=== PATIENT | male | born 1995 | race Two or more races ===

== ENCOUNTER 2016-03-25 13:27 | Emergency (ER) | payer OTHER ==
--- NOTE | 2016-03-25 13:46 | ER Document Report ---
ED Medical Screen (RME) - General Stated Complaint: BODY PAINS Mode of Arrival: Ambulatory Information source: Patient Notes: Patient presents to the emergency department with complaints of body aches and pains past 3 weeks. Reports history of food poisoning last week. He was evaluated and vomiting 3 weeks ago. Denies recent fever vomiting diarrhea. 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 I have greeted and performed a rapid initial assessment of this patient. A comprehensive ED assessment and evaluation of the patient, analysis of test results and completion of the medical decision making process will be conducted by additional ED providers. TRAVEL OUTSIDE OF THE [place] IN LAST 30 DAYS: No - Related Data Allergies/Adverse Reactions: No Known Allergies Allergy (Unverified 03/25/16 13:43) Past Medical History - Immunizations Immunizations up to date: Yes Hx Diphtheria, Pertussis, Tetanus Vaccination: Yes
[2016-03-25 14:04] LABS: APPEARANCE,URINE CLEAR; BILIRUBIN,URINE NEGATIVE (NEGATIVE); GLUCOSE, URINE NEGATIVE (NEGATIVE); KETONES,URINE NEGATIVE (NEGATIVE); LEUKOCYTE ESTERASE,URINE NEGATIVE (NEGATIVE); NITRITE,URINE NEGATIVE (NEGATIVE); PROTEIN,URINE NEGATIVE (NEGATIVE); URINE SPECIFIC GRAVITY 1.025
[2016-03-25 14:10] LABS: HEMATOCRIT 44.4 % (37.9-51.0); HEMOGLOBIN 13.3 g/dL (13.5-17.0); MEAN CORPUSCULAR HEMOGLOBIN 16.4 pg (27.0-33.4); MEAN CORPUSCULAR HGB CONC 30.1 g/dL (32.0-36.0); RED CELL DISTRIBUTION WIDTH 17.7 % (11.5-14.0); WHITE BLOOD COUNT 7.4 10^3/uL (4.0-10.5)
[2016-03-25 14:23] LABS: ALANINE AMINOTRANSFERASE 91 U/L (21-72); ALBUMIN 3.6 g/dL (3.5-5.0); ALKALINE PHOSPHATASE 65 U/L (38-126); ANION GAP 13 (5-19); ASPARTATE AMINO TRANSFERASE 80 U/L (17-59); BILIRUBIN,TOTAL 0.5 mg/dL (0.2-1.3); BLOOD UREA NITROGEN 11 mg/dL (7-20); CALCIUM 9.6 mg/dL (8.4-10.2); CARBON DIOXIDE 28 mmol/L (22-30); CHLORIDE 100 mmol/L (98-107); CREATINE KINASE 722 U/L (55-170); GLUCOSE 92 mg/dL (75-110); POTASSIUM 4.4 mmol/L (3.6-5.0); SODIUM 141.1 mmol/L (137-145); TOTAL PROTEIN 7.3 g/dL (6.3-8.2)
[2016-03-25 14:35] LABS: HGB HCT DIFFERENCE -4.5; MEAN CORPUSCULAR VOLUME 55 fl (80-97); RED BLOOD COUNT 8.13 10^6/uL (4.35-5.55)
[2016-03-25 14:42] LABS: ANISOCYTOSIS 2+; BAND NEUTROPHILS % (MANUAL) 12 % (3-5); BASOPHILS % (MANUAL) 1 % (0-2); EOSINOPHILS % (MANUAL) 0 % (0-6); HYPOCHROMASIA 1+; LYMPHOCYTES % (MANUAL) 16 % (13-45); MICROCYTOSIS 4+; OVALOCYTES SLIGHT; POIKILOCYTOSIS SLIGHT; POLYCHROMASIA SLIGHT; ROULEAUX SLIGHT; TARGET CELLS SLIGHT; TOTAL CELLS COUNTED 100; TOXIC GRANULATION SLIGHT; TOXIC VACUOLATION PRESENT
--- NOTE | 2016-03-25 15:51 | ER Document Report ---
ED General - General Chief Complaint: Fever Stated Complaint: BODY PAINS Time seen by provider: 15:45 Mode of Arrival: Ambulatory Information source: Patient Notes: 20-year-old male who complains about 3 week history of subjective fever chills diffuse body aches and cough productive of yellow sputum. He reports he had some vomiting when symptoms first began but that got better he's had no vomiting and diarrhea in the past week. She reports sharp anterior chest pain with deep breathing or coughing but not otherwise. He reports sore throat which has been persistent for 3 weeks. He denies earache, abdominal pain, back pain, hematemesis, melena, dysuria, or pain numbness weakness to extremities. Physical Exam: General: Alert, appears well. HEENT: Normocephalic. Atraumatic. PERRLA. Extraocular movements intact. Tympanic membranes and canals clear Oropharynx clear. Membranes moist no otorhinorrhea Neck: Supple. No adenopathy no nuchal rigidity nontender to palpation Respiratory: No respiratory distress. Few rhonchi bilateral breath sounds equal good aeration no accessory muscle use deep breathing reproduces patient's pain not tender to palpation Cardiovascular: Regular rate and rhythm. Abdominal: Normal Inspection. Soft, non-tender. No distension. Normal Bowel Sounds. Back: Non-tender. No deformity or step off. Extremities: Moves all four extremities. Upper extremities: Normal inspection. Non-tender. Normal color. Normal ROM. Normal temperature. Lower extremities: Normal inspection. Non-tender. No edema. Normal color. Normal ROM. Normal temperature. Neurological: Speech clear mentation normal Psychological: Normal affect. Normal Mood. Skin: Warm. Dry. Normal color. TRAVEL OUTSIDE OF THE [place] IN LAST 30 DAYS: No - Related Data Allergies/Adverse Reactions: No Known Allergies Allergy (Unverified 03/25/16 13:43) Past Medical History - General Information source: Patient - Social History Smoking Status: Never Smoker Chew tobacco use (# tins/day): No Frequency of alcohol use: None Drug Abuse: None Family History: CAD, Hyperlipidemia, Hypertension Patient has suicidal ideation: No Patient has homicidal ideation: No - Past Medical History Cardiac Medical History: Reports: None Renal/ Medical History: Denies: Hx Peritoneal Dialysis - Immunizations Immunizations up to date: Yes Hx Diphtheria, Pertussis, Tetanus Vaccination: Yes Review of Systems - Review of Systems Constitutional: See HPI EENT: See HPI Cardiovascular: See HPI Respiratory: See HPI Gastrointestinal: See HPI Genitourinary: denies: Burning, Dysuria Musculoskeletal: denies: Back pain Hematologic/Lymphatic: denies: Swollen glands Neurological/Psychological: denies: Weakness, Numbness Physical Exam - Vital signs Vitals: Temp Pulse Resp BP Pulse Ox 97.9 F 108 H 20 128/75 H 96 03/25/16 13:44 03/25/16 13:44 03/25/16 13:44 03/25/16 13:44 03/25/16 13:44 Course - Re-evaluation Re-evalutation: 03/25/16 15:47 Patient's current symptoms consistent with bronchitis and given the fact that they've been ongoing for 3 weeks I think at this point this warrants treatment with antibiotics we'll prescribe Zithromax Z-Payam and albuterol inhaler as [place] - Vital Signs Vital signs: Temp Pulse Resp BP Pulse Ox 97.9 F 108 H 20 128/75 H 96 03/25/16 13:44 03/25/16 13:44 03/25/16 13:44 03/25/16 13:44 03/25/16 13:44 - Laboratory Result Diagrams: 03/25/16 13:45 03/25/16 13:45 Laboratory results interpreted by me: 03/25/16 03/25/16 03/25/16 13:45 13:45 13:45 RBC 8.13 H Hgb 13.3 L MCV 55 L MCH 16.4 L MCHC 30.1 L RDW 17.7 H Band Neutrophils % 12 H AST 80 H ALT 91 H Creatine Kinase 722 H Urine Blood MODERATE H Urine Urobilinogen 2.0 H 03/25/16 15:47 Discharge - Discharge Clinical Impression: Bronchitis Condition: Stable Disposition: HOME, SELF-CARE Additional Instructions: Bronchitis You have acute bronchitis. This disease is an infection or inflammation of the air passageways in your lungs. Symptoms usually include cough, low grade fever, shortness of breath, and wheezing. The cough usually persists for a couple of weeks. Most cases of bronchitis get better without antibiotics. We prescribe antibiotics when we believe bacteria are damaging your airways, or if there's high risk the bronchitis will worsen into pneumonia. Increase your fluid intake. A cool mist humidifier may make your lungs more comfortable. An expectorant (cough medicine that loosens phlegm) can help. If you smoke, STOP!!! Recovery from bronchitis can be somewhat slow, but you should see improvement within a day or two. Repeated episodes of bronchitis may result in lung damage -- for example, chronic bronchitis, recurrent pneumonias, or emphysema. Call the doctor if you develop increasing fever, shortness of breath, chest pain, bloody sputum, or otherwise worsen. If you have not improved at all after several days, contact the physician. Prescriptions: Albuterol Sulfate [Proair HFA Inhalation Aerosol 8.5 gm MDI] 2 puff IH Q4H PRN # 1 mdi PRN Reason: Azithromycin [Zithromax 250 mg Tablet] 250 mg PO ASDIR PRN #6 tablet PRN Reason: Referrals: [facility] [Provider Group] - Follow up in 1 week
[2016-03-25 15:57] VITALS: BP 134/64
== END 2016-03-25 15:56 | disposition home or self-care (01) ==
LOC: ER 13:27
DX: J40 Bronchitis, not specified as acute or chronic (principal); R50.9 Fever, unspecified; R52 Pain, unspecified; R05 Cough; J02.9 Acute pharyngitis, unspecified
CPT/HCPCS: 36415; 80053; 81001; 82550; 85025; 99283

== ENCOUNTER 2016-03-25 21:27 | Emergency (ER) | payer OTHER ==
[2016-03-25] MEDS ORDERED: ASPIRIN 81 MG TABLET, CHEWABLE PO ONE (21:34)
--- NOTE | 2016-03-25 21:42 | ER Document Report ---
ED Medical Screen (RME) - General Stated Complaint: CHEST PAIN, SHORT OF BREATH Mode of Arrival: Wheelchair Information source: Patient Notes: Patient returns today for complaints of severe chest pain shortness of breath. He was evaluated earlier today and diagnosed with bronchitis. Patient was prescribed Zithromax and an inhaler. o2 sat 95% very SOB. [facility] recent v/ d. I have greeted and performed a rapid initial assessment of this patient. A comprehensive ED assessment and evaluation of the patient, analysis of test results and completion of the medical decision making process will be conducted by additional ED providers. TRAVEL OUTSIDE OF THE [place] IN LAST 30 DAYS: No - Related Data Allergies/Adverse Reactions: No Known Allergies Allergy (Unverified 03/25/16 13:43) Past Medical History Renal/ Medical History: Denies: Hx Peritoneal Dialysis - Immunizations Immunizations up to date: Yes Hx Diphtheria, Pertussis, Tetanus Vaccination: Yes
[2016-03-25 22:15] LABS: HEMATOCRIT 41.5 % (37.9-51.0); HEMOGLOBIN 13.4 g/dL (13.5-17.0); HGB HCT DIFFERENCE -1.3; MEAN CORPUSCULAR HEMOGLOBIN 17.2 pg (27.0-33.4); MEAN CORPUSCULAR HGB CONC 32.2 g/dL (32.0-36.0); MEAN CORPUSCULAR VOLUME 53 fl (80-97); RED CELL DISTRIBUTION WIDTH 17.3 % (11.5-14.0); WHITE BLOOD COUNT 8.1 10^3/uL (4.0-10.5)
[2016-03-25 22:21] LABS: ALANINE AMINOTRANSFERASE 90 U/L (21-72); ALBUMIN 4.1 g/dL (3.5-5.0); ALKALINE PHOSPHATASE 66 U/L (38-126); ANION GAP 16 (5-19); ASPARTATE AMINO TRANSFERASE 74 U/L (17-59); BILIRUBIN,TOTAL 0.5 mg/dL (0.2-1.3); BLOOD UREA NITROGEN 10 mg/dL (7-20); CALCIUM 9.8 mg/dL (8.4-10.2); CARBON DIOXIDE 23 mmol/L (22-30); CHLORIDE 100 mmol/L (98-107); CREATINE KINASE 567 U/L (55-170); CREATININE RESULT 1.26 mg/dL (0.52-1.25); GLUCOSE 113 mg/dL (75-110); POTASSIUM 4.2 mmol/L (3.6-5.0); SODIUM 139.1 mmol/L (137-145); TOTAL PROTEIN 7.2 g/dL (6.3-8.2)
[2016-03-25] MEDS ORDERED: NORMAL SALINE 1000 ML 1,000 ML IV PRN (22:33)
[2016-03-25] MEDS ORDERED: ONDANSETRON HCL INJ/PF 4 MG/2 ML SDV IV ONE (22:33)
[2016-03-25] MEDS ORDERED: KETOROLAC TROMETHAMINE INJ/PF 30 MG/1 ML SDV IV ONE (22:33)
--- NOTE | 2016-03-25 22:34 | ER Document Report ---
ED General - General Chief Complaint: Chest Pain Stated Complaint: CHEST PAIN, SHORT OF BREATH Time seen by provider: 22:41 Mode of Arrival: Wheelchair TRAVEL OUTSIDE OF THE [place] IN LAST 30 DAYS: No - HPI Patient complains to provider of: chest pain, shortness of breath, persistent cough, generalized weakness Onset: Other - 3 weeks Onset/Duration: Persistent Quality of pain: Achy Severity: Moderate Pain Level: 3 Associated symptoms: Body/muscle aches, Chest pain, Chills, Nonproductive cough , Fever, Headache, Nausea, Shortness of breath, Sweating, Weakness Exacerbated by: Denies Relieved by: Denies Similar symptoms previously: Yes Recently seen / treated by doctor: Yes Notes: Patient is a 20-year-old male with no past medical history who presents to the emergency room complaining of persistent symptoms 3 weeks which include chest pain, shortness of breath, hot and cold chills, generalized weakness, trembling , body aches, headache, he was seen in this emergency room earlier in the day, diagnosed with bronchitis, started on albuterol and a azithromycin, but reports his symptoms worsen this evening, he does report positive sick contacts - Related Data Allergies/Adverse Reactions: No Known Allergies Allergy (Verified 03/25/16 21:42) Past Medical History - General Information source: Patient - Social History Smoking Status: Never Smoker Chew tobacco use (# tins/day): No Frequency of alcohol use: None Drug Abuse: None Family History: CAD, Hyperlipidemia, Hypertension Patient has suicidal ideation: No Patient has homicidal ideation: No Renal/ Medical History: Denies: Hx Peritoneal Dialysis - Immunizations Immunizations up to date: Yes Hx Diphtheria, Pertussis, Tetanus Vaccination: Yes Review of Systems - Review of Systems Constitutional: See HPI EENT: No symptoms reported Cardiovascular: Chest pain Respiratory: Cough, Short of breath Gastrointestinal: Nausea, Poor appetite, Poor fluid intake Genitourinary: No symptoms reported Male Genitourinary: No symptoms reported Musculoskeletal: See HPI Skin: No symptoms reported Hematologic/Lymphatic: No symptoms reported Neurological/Psychological: Headaches -: Yes All other systems reviewed and negative Physical Exam - Vital signs Vitals: Temp Pulse Resp BP Pulse Ox 98.1 F 125 H 20 138/76 H 95 03/25/16 21:41 03/25/16 21:41 03/25/16 21:41 03/25/16 21:41 03/25/16 21:41 Interpretation: Tachycardic - General General appearance: Appears well, Alert - HEENT Head: Normocephalic, Atraumatic Eyes: Normal Conjunctiva: Normal Extraocular movements intact: Yes Eyelashes: Normal Pupils: PERRL Mucous membranes: Normal Pharynx: Normal Neck: Normal - Respiratory Respiratory status: No respiratory distress Chest status: Nontender Breath sounds: Normal Chest palpation: Normal - Cardiovascular Rhythm: Regular, Tachycardia Heart sounds: Normal auscultation Murmur: No - Abdominal Inspection: Normal Distension: No distension Bowel sounds: Normal Tenderness: Tender - Epigastric Organomegaly: No organomegaly - Back Back: Normal, Nontender - Extremities General upper extremity: Normal inspection, Nontender, Normal color, Normal ROM , Normal temperature General lower extremity: Normal inspection, Nontender, Normal color, Normal ROM , Normal temperature, Normal weight bearing. No: Rock's sign - Neurological Neuro grossly intact: Yes Cognition: Normal Orientation: AAOx4 Brick Coma Scale Eye Opening: Spontaneous Fernando Coma Scale Verbal: Oriented Fernando Coma Scale Motor: Obeys Commands Fernando Coma Scale Total: 15 Speech: Normal Motor strength normal: LUE, RUE, LLE, RLE Sensory: Normal - Psychological Associated symptoms: Normal affect, Normal mood - Skin Skin Temperature: Warm Skin Moisture: Dry Skin Color: Normal Course - Re-evaluation Re-evalutation: 03/26/16 01:29 Patient resting comfortably, reports feeling much better after IV fluids, laboratory evaluation relatively unremarkable, patient was discharged with instructions for follow-up and advised to return if symptoms worsen, patient acknowledges understanding and agreement with this plan - Vital Signs Vital signs: Temp Pulse Resp BP Pulse Ox 98.1 F 125 H 20 138/76 H 95 03/25/16 21:41 03/25/16 21:41 03/25/16 21:41 03/25/16 21:41 03/25/16 21:41 - Laboratory Result Diagrams: 03/25/16 21:50 03/25/16 21:50 Laboratory results interpreted by me: 03/25/16 03/25/16 03/25/16 21:50 21:50 23:38 RBC 7.78 H Hgb 13.4 L MCV 53 L MCH 17.2 L RDW 17.3 H Band Neutrophils % 14 H Monocytes % (Manual) 1 L Metamyelocytes % 1 H VBG pH Creatinine 1.26 H Glucose 113 H AST 74 H ALT 90 H Creatine Kinase 567 H Urine Protein 30 H Urine Blood SMALL H 03/26/16 00:10 RBC Hgb MCV MCH RDW Band Neutrophils % Monocytes % (Manual) Metamyelocytes % VBG pH 7.43 H Creatinine Glucose AST ALT Creatine Kinase Urine Protein Urine Blood - Diagnostic Test Radiology reviewed: Image reviewed, Reports reviewed - EKG Interpretation by Me EKG shows normal: Sinus rhythm Rate: Tachycardia Discharge - Discharge Clinical Impression: Viral illness Condition: Stable Disposition: HOME, SELF-CARE Instructions: Viral Syndrome ([facility]) Additional Instructions: Drink plenty of fluids.. Tylenol or Motrin as needed for fever. Follow-up with your primary care provider in one to 2 days. Return to the emergency room immediately if symptoms worsen or any additional concerns.
[2016-03-25 22:38] LABS: RED BLOOD COUNT 7.78 10^6/uL (4.35-5.55)
[2016-03-25 22:54] LABS: BAND NEUTROPHILS % (MANUAL) 14 % (3-5); BASOPHILS % (MANUAL) 0 % (0-2); EOSINOPHILS % (MANUAL) 0 % (0-6); LYMPHOCYTES % (MANUAL) 19 % (13-45); TOTAL CELLS COUNTED 100; TOXIC GRANULATION SLIGHT
[2016-03-25 22:55] LABS: ANISOCYTOSIS 1+; HYPOCHROMASIA SLIGHT; MICROCYTOSIS 4+; OVALOCYTES SLIGHT; POIKILOCYTOSIS SLIGHT; POLYCHROMASIA SLIGHT; TARGET CELLS SLIGHT; TEAR DROP CELLS SLIGHT
[2016-03-25 23:08] LABS: CREATINE KINASE MB 0.37 ng/mL (<4.55)
[2016-03-25 23:09] LABS: TROPONIN I < 0.012 ng/mL
[2016-03-26 00:07] LABS: APPEARANCE,URINE CLEAR; BILIRUBIN,URINE NEGATIVE (NEGATIVE); GLUCOSE, URINE NEGATIVE (NEGATIVE); KETONES,URINE NEGATIVE (NEGATIVE); LEUKOCYTE ESTERASE,URINE NEGATIVE (NEGATIVE); NITRITE,URINE NEGATIVE (NEGATIVE); PROTEIN,URINE 30 mg/dL (NEGATIVE); URINE SPECIFIC GRAVITY 1.018; UROBILINOGEN,URINE NEGATIVE mg/dL (<2.0)
[2016-03-26 00:16] LABS: URINE BARBITURATES SCREEN NEGATIVE; URINE METHADONE SCREEN NEGATIVE; URINE OPIATES LOW UNCONFIRMED POSITIVE; URINE PHENCYCLIDINE SCREEN NEGATIVE
[2016-03-26 00:22] LABS: VENOUS BLOOD BASE EXCESS 0.6 mmol/L; VENOUS BLOOD HCO3 24.7 mmol/L (20-32); VENOUS BLOOD PCO2 37.9 mmHg (35-63); VENOUS BLOOD PH 7.43 (7.30-7.42)
[2016-03-26 02:18] VITALS: BP 117/54
--- NOTE | 2016-03-26 12:47 | EKG REPORT ---
SEVERITY:- BORDERLINE ECG - SINUS TACHYCARDIA BORDERLINE T ABNORMALITIES, INFERIOR LEADS : Confirmed by: Mora Cramer MD 26-Mar-2016 12:46:59
== END 2016-03-26 02:18 | disposition home or self-care (01) ==
LOC: ER 21:27
DX: B34.9 Viral infection, unspecified (principal); R07.9 Chest pain, unspecified; R06.02 Shortness of breath; R05 Cough; R53.1 Weakness
CPT/HCPCS: 93005; 99285; 96361; 96374; 96375; 36415; 87040; 82553; 80307 ×2; 82550; 85025; 80053; 81001; 84484; 82803; 87804; 71010; 93010; J1885; J2405; J7030